=== PATIENT | female | born 1970 | race Caucasian/White ===

== ENCOUNTER → 2019-08-24 14:39 | Outpatient (BNVA) | payer BC, SELFPAY | PROVIDERS: Visit Provider Emergency Medicine | DX: N39.0 Urinary tract infection, site not specified (principal); R31.9 Hematuria, unspecified | CPT/HCPCS: 80053; 81000; 87077; 87086; 87186 ==

== ENCOUNTER → 2022-05-30 14:30 | Outpatient (BNVA) | payer BC, SELFPAY | PROVIDERS: Referring Provider Registered Nurse; Visit Provider Obstetrics & Gynecology | DX: Z01.419 Encounter for gynecological examination (general) (routine) without abnormal findings (principal); N93.8 Other specified abnormal uterine and vaginal bleeding; N93.9 Abnormal uterine and vaginal bleeding, unspecified | CPT/HCPCS: 84443; 85025; 87624 ==

== ENCOUNTER → 2022-06-20 14:41 | Outpatient (BNVA) | payer BC, SELFPAY | PROVIDERS: Visit Provider Obstetrics & Gynecology | DX: N93.8 Other specified abnormal uterine and vaginal bleeding (principal) | CPT/HCPCS: 76830 ==

== ENCOUNTER 2022-08-23 09:17 | Day surgery (SDC) | payer BC, SELFPAY ==
[2022-08-22 08:44] VITALS: BMI 46.6
[2022-08-23] VITALS (9 sets, daily range): BP systolic 133–192; BP diastolic 72–93; PULSE 68–91; RESP 16; TEMP 36.1–36.9; O2SAT 92–98
[2022-08-23] MEDS: sodium chloride 0.9% 1,000 ML 30 ML IV (10:35)
[2022-08-23] MEDS: scopolamine 1.5 Patch 1 PATCH TRANSDERMA (10:42)
[2022-08-23 10:50] LABS: Anion Gap 12.9 (5-19); Blood Urea Nitrogen 11 mg/dL (6-20); Calcium 9.1 mg/dL (8.5-10.5); Carbon Dioxide 27 mmol/L (22-29); Chloride 100 mmol/L (98-107); Glomerular Filtration Rate 128.6 mL/min (90-130); Glucose 85 mg/dL (65-115); Osmolality Calculated 281 mOsm/kg (285-295); Potassium 3.9 mmol/L (3.5-5.1); Sodium 136 mmol/L (136-145)
--- NOTE | 2022-08-23 11:11 | W.PM.OPSUD ---
Surgery/Procedure H&P Update DATE OF PROCEDURE: August 23, 2022 DATE H&P PERFORMED: 08/19/22 H&P UPDATE INFORMATION: I have reviewed H&P completed within last 30 days, I have examined patient prior to procedure and No changes to prior documentation PREOP DIAGNOSIS: PMB PLANNED PROCEDURE: Operation Date: 08/23/22 11:05 Proposed Procedures p Hysteroscopy, dilation and curettage with Myosure [id number], N93.9(Not Applicable) - Luly Olivares MD s Dilation And Curettage (D&C)(Not Applicable) - Luly Olivares MD Related Problem List Diagnoses (1) Abnormal uterine bleeding (AUB):
[2022-08-23] MEDS: ceFAZolin 2,000 MG in sodium chloride 0.9% (plus) 50 ML 100 MG IV (12:30)
--- NOTE | 2022-08-23 12:40 | ANES.PREANE2 ---
Pre-Anesthetic Assessment Height/Weight: Height 1.57 m Weight 115.666 kg Temp Pulse Resp BP Pulse Ox O2 Del Method 98.5 F 71 16 192/84 98 Room Air 08/23/22 09:54 08/23/22 09:54 08/23/22 09:54 08/23/22 09:54 08/23/22 09:54 08/23/22 09:57 Preop Diagnosis: PMB Operation Date: 08/23/22 11:05 Proposed Procedures p Hysteroscopy, dilation and curettage with Myosure [id number], N93.9(Not Applicable) - Luly Olivares MD s Dilation And Curettage (D&C)(Not Applicable) - Luly Olivares MD Familial anesthetic complications: none Was Beta Mariann taken within 24 hours: N/A Was Clonidine taken within 24 hours: N/A Last intake: Intake Last Liquid Date 08/22/22 Last Liquid Time 22:00 Last Solid Date 08/22/22 Last Solid Time 18:30 Social No alcohol and No tobacco Exam alert, oriented x 3, clear to auscultation bilaterally and regular rate & rhythm Airway Submandibular: within normal limits Cervical ROM: within normal limits Mallampati: Class II Dentition: full CV/HEM Hypertension Metabolic Morbid Obesity Anesthetic Plan ASA status: 3 Anesthesia: General Medications/Allergies Home Medications Medication Instructions Recorded Confirmed Last Taken Type lisinopril 20 1 tab PO DAILY 08/24/19 08/22/22 08/22/22 History mg-hydrochlorothiazide 12.5 mg tablet cholecalciferol (vitamin D3) 1,250 PO 05/30/22 08/19/22 08/16/22 History mcg (50,000 unit) capsule misoprostol 200 mcg tablet 600 mcg PO Q6H #24 tabs 08/19/22 08/22/22 08/23/22 03:00 Rx (Cytotec) Allergies Allergy/AdvReac Type Severity Reaction Status Date / Time No Known Allergies Allergy Verified 08/19/22 08:14 Current Medications Generic Name Dose Route Start Last Admin Trade Name Freq PRN Reason Stop Dose Admin Sodium Chloride 1,000 mls @ 30 mls/hr 08/23/22 09:30 08/23/22 10:35 Sodium Chloride 0.9% IV 08/24/22 09:29 30 mls/hr .Q24H HUMBERTO Administration PFSH Anesthesia Medical History Benign hypertension PCOS (polycystic ovarian syndrome) Surgical History H/O section History of dilatation and curettage S/P cholecystectomy Family History Grandmother Breast cancer maternal Grandfather Colon cancer maternal Father Hypertension Denies family history of Ovarian cancer Diabetes Heart disease Hypercholesteremia Uterine cancer Thyroid disease Stroke Female Reproductive History Date of last menstrual period: 07/24/22 Data Anesthesia 08/23/22 10:20 BMP 08/23/22 10:20 Sodium 136 Potassium 3.9 Chloride 100 Carbon Dioxide 27 BUN 11 Creatinine 0.5 Glucose 85 Calcium 9.1 Cardiac Studies: No Data to Display
--- NOTE | 2022-08-23 13:27 | P.OP_ITS ---
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 She was prepped and draped in the normal sterile fashion in the dorsal lithotomy position in [facility]. A weighted speculum was placed into the vagina and the anterior lip of the cervix grasped with a single-tooth tenaculum. The uterus was sounded to 8 cm. The cervix was dilated to 16 Turk[place]. The hysteroscope was advanced into the endometrial cavity. There was a narrow left side of the uterus, complete with a tubal ostia visualized. There appeared to be no right side of the uterus nor right tubal ostia. There was what appeared to be thickened wall instead. The MyoSure device was activated and the tissue was removed. Pictures were taken pre and post procedure. All instruments were removed. The patient tolerated the procedure well. Sponge lap and needle counts were correct x3. She was taken to the recovery room in stable condition.
--- NOTE | 2022-08-23 13:34 | PM.DCS ---
Discharge Providers Date of Admission: 08/23/22 Date of Discharge: August 23, 2022 Attending Provider at Discharge: Luly Olivares MD Primary Care Provider: Uzair Cisneros Diagnoses at Discharge Discharge Diagnosis (1) Abnormal uterine bleeding (AUB): Status: Acute Reason for Visit Reason for Visit: 18658 N93.9 Hospital Course Hospital Course The patient was admitted for surgery. She did well postoperatively and was ready for discharge Discharge Data Studies Completed and Pending Laboratory Results Sodium 136 mmol/L (136-145) 08/23/22 10:20 Potassium 3.9 mmol/L (3.5-5.1) 08/23/22 10:20 Chloride 100 mmol/L (98-107) 08/23/22 10:20 Carbon Dioxide 27 mmol/L (22-29) 08/23/22 10:20 Anion Gap 12.9 (5-19) 08/23/22 10:20 BUN 11 mg/dL (6-20) 08/23/22 10:20 Creatinine 0.5 mg/dL (0.5-0.9) 08/23/22 10:20 GFR Calculation 128.6 mL/min (90-130) 08/23/22 10:20 Glucose 85 mg/dL (65-115) 08/23/22 10:20 Calculated Osmolality 281 mOsm/kg (285-295) L 08/23/22 10:20 Calcium 9.1 mg/dL (8.5-10.5) 08/23/22 10:20 Vitals Last Vital Signs Temp 98.5 F 08/23/22 09:54 Pulse 71 08/23/22 09:54 Resp 16 08/23/22 09:54 BP 192/84 08/23/22 09:54 Pulse Ox 98 08/23/22 09:54 O2 Del Method Room Air 08/23/22 09:57 Discharge Plan Discharge Patient Disposition: Home Condition: Stable Prescriptions: Continued lisinopril-hydrochlorothiazide 20-12.5 mg tablet 1 tab PO DAILY cholecalciferol (vitamin D3) 1,250 mcg (50,000 unit) capsule PO misoprostol [Cytotec] 200 mcg tablet 600 mcg PO Q6H Qty: 24 0RF Rx Instructions: start 08/21 at 12 pm. Last dose 08/23 at 6 am Discharge Orders: Discharge Order (Routine); Ordered 08/23/22 Ordered By: Luly Olivares Discharge Attestations Time Spent in Discharge Care*: less than 30 min Quality Metrics Clinical Quality Measures [ No reported AMI, CVA or VTE this stay] Coding Level of Care Code Acute Code for Chg Fwd Diagnoses Abnormal uterine bleeding (AUB) N93.9
--- NOTE | 2022-08-23 16:07 | ANE.PACU2 ---
Inpatient post-anesthesia follow up: Airway intact: Yes Vital signs: Temperature 97.7 F Pulse Rate 72 Respiratory Rate 16 Blood Pressure 133/75 Pulse Oximetry 97 Oxygen Delivery Me thod Room Air Oxygen Flow Rate Fraction of Inspir ed Oxygen Hydration adequate: Yes Nausea and vomiting: No Pain level: 2 Mental status: Baseline
== END 2022-08-23 15:30 | disposition home or self-care (01) ==
PROVIDERS: PCP Family Medicine; Visit Provider Obstetrics & Gynecology
PROC: 0UDB8ZZ Extraction of Endometrium, Via Natural or Artificial Opening Endoscopic (ICD-10-PCS; CPT 58558; principal; 2022-08-23 10:55)
PROC: (CPT 58120; 2022-08-23 10:55)
DX: N95.0 Postmenopausal bleeding (principal); I10 Essential (primary) hypertension; E66.01 Morbid (severe) obesity due to excess calories; Z68.42 Body mass index [BMI] 45.0-49.9, adult
CPT/HCPCS: 58558; 36415; 80048; 81025; 88305; J0131; J0330; J0690; J1100; J1200; J1885; J2405; J2704; J3010; J7030